=== PATIENT | male | born 1980 | race Caucasian/White ===

== ENCOUNTER 2021-11-16 20:25 | Emergency (ER) | payer MEDICAID, OTHER ==
[~2021-11-16] VITALS: Ht 188 cm; Wt 127.3 kg
[~2021-11-16 20:25] MED LIST: ALBU17AE27 IH; NOCURR
[2021-11-16 20:33] VITALS: BP 120/70
[2021-11-16] MEDS ORDERED: DIPH30C TP (22:27)
[2021-11-16] MEDS ORDERED: TRI2560LO TP (22:27)
== END 2021-11-16 22:51 | disposition home or self-care (01) ==
LOC: EMS 20:25
DX: L25.9 Unspecified contact dermatitis, unspecified cause (principal); J45.909 Unspecified asthma, uncomplicated
CPT/HCPCS: 99283; Z7502